=== PATIENT | female | born 1965 | race African-American/Black ===

== ENCOUNTER 2019-07-20 17:37 | Inpatient (IN) | payer OTHER ==
--- NOTE | 2019-07-20 17:55 | PDOC ---
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 The pt states she is to have a left knee reconstruction this coming Wednesday. She endorses frequent falls 2/2 her left knee instability. She denies any falls today/yesterday. Denies recent illness, fevers/chills, MCDONALD, vision changes, chest pain, trouble breathing, abdominal pain, N/V/C/D, dysuria, hematuria, or changes in strength/ sensation. PMH: Thalassemia PSH: L knee x4, s/p appy, gastric surgery (RYGB?) Meds: Iron SH: Denies x3 PCP: Dr. Acosta ([facility]) Surgeon: Dr. Keaton Rosenbaum 07/20/19 18:21 Past History - Past Medical History Allergies/Adverse Reactions: Allergies Allergy/AdvReac Type Severity Reaction Status Date / Time No Known Allergies Allergy Verified 07/20/19 17:50 Anemia: Yes COPD: No Other medical history: ARTHRITIS - Immunization History Immunization Up to Date: Yes - Psycho Social/Smoking Cessation Hx Smoking History: Never smoked Have you smoked in the past 12 months: No Information on smoking cessation initiated: No Hx Alcohol Use: No Drug/Substance Use Hx: No Review of Systems - Review of Systems Able to Perform ROS?: Yes Comments:: GENERAL/CONSTITUTIONAL: No fever or chills. No weakness HEAD, EYES, EARS, NOSE AND THROAT: No change in vision. No change in hearing. No sore throat CARDIOVASCULAR: No chest pain or shortness of breath RESPIRATORY: Denies cough, hemoptysis GASTROINTESTINAL: No nausea, vomiting, diarrhea or constipation GENITOURINARY: No dysuria, frequency, or change in urination MUSCULOSKELETAL: +L knee swelling w/o erythema/warmth SKIN: No rash NEUROLOGIC: No headache, vertigo, loss of consciousness, or change in strength/ sensation ENDOCRINE: No increased thirst. No abnormal weight change HEMATOLOGIC/LYMPHATIC: No anemia, easy bleeding, or history of blood clots ALLERGIC/IMMUNOLOGIC: No hives or skin allergy 07/20/19 17:54 Is the patient limited Malay proficient: No *Physical Exam - Vital Signs Last Vital Signs Temp Pulse Resp BP Pulse Ox 97.5 F L 59 L 18 154/60 100 07/20/19 17:46 07/20/19 17:46 07/20/19 17:46 07/20/19 17:46 07/20/19 17:46 - Physical Exam GENERAL: Awake, alert, and oriented to person/place/time, in no acute distress HEAD: No signs of trauma, normoc ephalic, atraumatic EYES: PERRLA, EOMI, sclera anicteric, conjunctiva clear ENT: Hearing grossly normal, nares patent, oropharynx clear without exudates. Moist mucosa LUNGS: No distress, speaks in full sentences, clear to auscultation bilaterally HEART: Regular rate and rhythm, normal S1 and S2, no murmurs appreciated, peripheral pulses normal and equal bilaterally ABDOMEN: Soft, nontender, normoactive bowel sounds. No guarding, no rebound EXTREMITIES: Left knee with well healed anterior incision, left knee with swelling w/o warmth or overlying erythema, left knee brace in place NEUROLOGICAL: Cranial nerves II through XII grossly intact. 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 Rosenbaum ED Course CMP, CBC, Coags, T/S ECG Plan for admission for planned surgery Pt w/o acute complaints Pt does not want anything for pain control at this time 07/20/19 18:28 Labs sent ECG pending Pt signed out to Dr. Pagan 07/20/19 18:53 Discharge - Discharge Information Problems reviewed: Yes Clinical Impression/Diagnosis: Swelling of left knee joint Thalassanemia Qualifiers: Thalassemia type: unspecified type Qualified Code(s): D56.9 - Thalassemia, unspecified Condition: Stable - Admission Yes - Follow up/Referral Referrals: Keaton Rosenbaum MD [Primary Care Provider] - - Patient Discharge Instructions - Post Discharge Activity
--- NOTE | 2019-07-20 18:32 | PDOC ---
Attending Attestation - Resident Resident Name: Jozef Moseley - ED Attending Attestation I have performed the following: I have examined & evaluated the patient, The case was reviewed & discussed with the resident, I agree w/resident's findings & plan - HPI HPI: 07/20/19 18:30 The pt is a 54F w/ a history of thalassemia anemia on iron supplementation, arthritis who presents for admission for planned knee surgery. The pt states she is to have a left knee reconstruction this coming Wednesday. She endorses frequent falls 2/2 her left knee instability. She denies any falls today/ yesterday. no f/c, weakness or paresthesias. PSH: L knee x4, s/p appy, gastric surgery (RYGB?) PCP: Dr. Acosta ([facility]) Surgeon: Dr. Keaton Rosenbaum - Physicial Exam PE: 07/20/19 18:30 Agree with the resident's HPI and PE as documented in the electronic medical record. NAD, well appearing, EOMI, PERRL, nl conjunctiva, anicteric; neck supple. lungs clear, RRR, abdomen soft nontender. no rebound, guarding. Back nontender. MERINO x4, no focal neuro deficits. No peripheral edema. normal color for ethnicity , WWP. +left knee vertical scar from prior surgeries. +tender to palp and swelling, no warmth or erythema, no discoloration. - Medical Decision Making 07/20/19 18:31 Vital Signs Temp Pulse Resp BP Pulse Ox 97.5 F L 59 L 18 154/60 100 07/20/19 17:46 07/20/19 17:46 07/20/19 17:46 07/20/19 17:46 07/20/19 17:46 VS reviewed wnl no e/o sepsis or septic arthritis basic labs/preop management being admitted for planned surgery with his orthopedic physician, Dr Rosenbaum who we spoke to with previsit note. pain controlled here, does not wish for analgesia now. admit to medical service for planned ortho reconstructive knee surgery. 07/23/19 09:43
[2019-07-20 18:57] LABS: BASO % 1.2 % (0-2.0); EOS % 10.3 % (0-4.5); HEMATOCRIT 33.4 % (32.4-45.2); HEMOGLOBIN 10.3 GM/dL (10.7-15.3); LYMPH % 43.4 % (8-40); MCH 22.5 pg (25.7-33.7); MCHC 30.8 g/dl (32.0-36.0); MEAN PLT VOLUME 9.4 fl (7.5-11.1); MONO % 11.6 % (3.8-10.2); NEUT % 33.5 % (42.8-82.8); PLATELET COUNT 270 K/MM3 (134-434); RBC 4.57 M/mm3 (3.60-5.2); RDW 15.7 % (11.6-15.6); WHITE BLOOD COUNT 4.7 K/mm3 (4.0-10.0)
[2019-07-20 19:16] LABS: INR 0.99 (0.83-1.09); PROTHROMBIN TIME (PATIENT) 11.7 SEC (9.7-13.0)
[2019-07-20 19:19] LABS: ACTIVATED PTT 31.5 SECONDS (25.2-36.5)
--- NOTE | 2019-07-20 19:26 | PDOC ---
*Physical Exam - Vital Signs Last Vital Signs Temp Pulse Resp BP Pulse Ox 97.5 F L 59 L 18 154/60 100 07/20/19 17:46 07/20/19 17:46 07/20/19 17:46 07/20/19 17:46 07/20/19 17:46 ED Treatment Course - LABORATORY CBC & Chemistry Diagram: 07/20/19 18:39 07/20/19 18:34 - ADDITIONAL ORDERS Additional order review: Laboratory Results 07/20/19 18:39 PT with INR 11.70 INR 0.99 PTT (Actin FS) 31.5 07/20/19 18:39 RBC 4.57 MCV 73.0 L MCHC 30.8 L RDW 15.7 H MPV 9.4 Neutrophils % 33.5 L Lymphocytes % 43.4 H Monocytes % 11.6 H Eosinophils % 10.3 H Basophils % 1.2 Medical Decision Making - Medical Decision Making Patient signed out to me from Dr. Moseley pending labs and admission to the hospital as she is to have a knee surgery by Dr. Rosenbaum the orthopedist EKG: NS rate of 60, narrow complexes, normal axis, no hypertrophy, no ST elevations or depressions, TWI in lead III, no Q waves, QTc 428, IN 174 Labs: Hb 10.3 Dispo: Med/Surg -Hospitalist is refusing to accept patient and stating this patient does not need to be admitted on a for a surgery this upcoming Wednesday - Will Call Dr. Rosenbaum and see what he wants - Dr. Rosenbaum says to admit patient to Dr. Sanchez - Dr. Sanchez admits patient's to Yung Kevin - Call placed to Dr. Kevin's office - awaiting callback - Dr. Kevin states he does not believe Dr. Sanchez still admits to this hospital and Dr. Kevin states he will happily accept this admission if Dr. Sanchez does not want it Dr. Sanchez: [phone] Dr. Kevin: [phone] - Call placed to Dr. Sanchez at 8 pm, no answer left voicemail - 2nd call placed to Dr. Sanchez at 8:30 pm, no answer, straight to voicemail - Will try again at 9 pm and if no response will call back Dr. Kevin for admission. - 3rd call placed to Dr. Sanchez - straight to voicemail - Will Call Dr. Kevin for admission - Patient accepted for admission by Dr. Kevin Discharge - Discharge Information Problems reviewed: Yes Clinical Impression/Diagnosis: Swelling of left knee joint Thalassanemia Qualifiers: Thalassemia type: unspecified type Qualified Code(s): D56.9 - Thalassemia, unspecified Condition: Stable - Admission Yes - Follow up/Referral Referrals: Keaton Rosenbaum MD [Primary Care Provider] - - Patient Discharge Instructions - Post Discharge Activity
[2019-07-20 19:42] LABS: ALBUMIN 3.6 g/dl (3.4-5.0); BILIRUBIN,TOTAL 0.4 mg/dL (0.2-1); CALCIUM 9.2 mg/dL (8.5-10.1); CREATININE 0.6 mg/dL (0.55-1.3); POTASSIUM 4.1 mmol/L (3.5-5.1); TOT PROT 7.2 g/dl (6.4-8.2)
[2019-07-20] MEDS ORDERED: ACETAMINOPHEN 1000 MG/100 ML VIAL (NON FORMULARY) IVPB ONE (20:09)
[2019-07-20] MEDS ORDERED: ACETAMINOPHEN INJECTION 100 ML IVPB ONE (21:26)
[2019-07-20 23:56] LABS: SICKLE CELL SCREEN NEGATIVE (NEGATIVE)
[2019-07-20 23:57] LABS: EOS % 7.9 % (0-4.5); HEMATOCRIT 31.5 % (32.4-45.2); HEMOGLOBIN 9.9 GM/dL (10.7-15.3); LYMPH % 52.5 % (8-40); MCH 22.6 pg (25.7-33.7); MCHC 31.3 g/dl (32.0-36.0); MEAN CELL VOLUME 72.1 fl (80-96); MEAN PLT VOLUME 8.8 fl (7.5-11.1); MONO % 9.1 % (3.8-10.2); NEUT % 29.5 % (42.8-82.8); PLATELET COUNT 269 K/MM3 (134-434); RBC 4.37 M/mm3 (3.60-5.2); RDW 15.8 % (11.6-15.6); WHITE BLOOD COUNT 4.6 K/mm3 (4.0-10.0)
[2019-07-21 00:28] VITALS: BMI 34.2
[2019-07-21] MEDS ORDERED: INSULIN (LEVEMIR) 100 UNITS/ML UNITS SQ ONE (08:39)
--- NOTE | 2019-07-21 09:06 | HP ---
Admitting History and Physical - Admission Chief Complaint: pt with h/o rt and lt tkr fell less wk ago and susiained lt knee injury went to [facility] hosp xrays done ? hardware ? shifting ocured as per pt. refered to dr bryan cutler admitted for sx wednesday asked to see pt preop. lt ? thgh slightly edematous lt knee pain scale 4 no other complaints History Source: Patient Limitations to Obtaining History: No Limitations - Past Medical History ...LMP Comment: LMP when patient in her 30's ...: No Heme/Onc: Yes: Other (thallasemia) Musculoskeletal: Yes: Other (lt knee pain swelling) - Past Surgical History Past Surgical History: Yes: Appendectomy, Joint Replacement - Smoking History Smoking history: Never smoked Have you smoked in the past 12 months: No - Alcohol/Substance Use Hx Alcohol Use: No - Social History Usual Living Arrangement: Yes: With Spouse ADL: Independent History of Recent Travel: No Home Medications - Allergies Allergies/Adverse Reactions: Allergies Allergy/AdvReac Type Severity Reaction Status Date / Time No Known Allergies Allergy Verified 07/20/19 17:50 - Home Medications Home Medications: Ambulatory Orders Ascorbic Acid [Vitamin C] 500 PO DAILY 07/21/19 Iron PO DAILY 07/21/19 Vitamin E 400 unit PO DAILY 07/21/19 Family Medical History Family History: Unremarkable Review of Systems - Review of Systems Constitutional: reports: No Symptoms Eyes: reports: No Symptoms HENT: reports: No Symptoms Neck: reports: No Symptoms Cardiovascular: reports: No Symptoms Respiratory: reports: No Symptoms Gastrointestinal: reports: No Symptoms Genitourinary: reports: No Symptoms Breasts: reports: No Symptoms Reported Musculoskeletal: reports: Joint Pain Integumentary: reports: No Symptoms Neurological: reports: No Symptoms Endocrine: reports: No Symptoms Hematology/Lymphatic: reports: No Symptoms Psychiatric: reports: No Symptoms Physical Examination Vital Signs: Vital Signs Temperature 98.1 F 07/21/19 06:19 Pulse Rate 63 07/21/19 06:19 Respiratory Rate 07/21/19 06:19 Blood Pressure 137/72 07/21/19 06:19 O2 Sat by Pulse Oximetry (%) 98 07/21/19 00:13 Constitutional: Yes: Well Nourished Eyes: Yes: WNL HENT: Yes: WNL Neck: Yes: WNL Cardiovascular: Yes: WNL, Other Respiratory: Yes: WNL Gastrointestinal: Yes: WNL ...Rectal Exam: Yes: Deferred Renal/: Yes: WNL Breast(s): Yes: WNL Extremities: Yes: Other (lt knee swelling pain scale 5) Edema: Yes Edema: LUE: 4+, LLE: 1+ (lt thigh ? swelling) Peripheral Pulses WNL: Yes Peripheral Pulses: Left Radial: 2+, Right Radial: 2+, Left Doralis Pedis: 2+, Right Dorsalis Pedis: 2+, Left Femoral: 2+ Integumentary: Yes: WNL Neurological: Yes: WNL ...Motor Strength: WNL Psychiatric: Yes: WNL Labs: CBC, BMP 07/20/19 22:44 07/20/19 18:34 Assessment/Plan pt had flu shot apr 2019 tlenol for pain pniemovax jenaro all preventive care done out pt allready pt cleared vfor sx reg diet npo wednesday after mn po
[2019-07-21] MEDS ORDERED: PNEUMOC 13-VAL CONJ-DIP CRM/PF 0.5 ML DISP.SYRIN IM ONE (09:11)
[2019-07-21] MEDS ORDERED: ACETAMINOPHEN 325 MG TABLET (FP) PO PRN (09:11)
--- NOTE | 2019-07-21 14:03 | EKG ---
Test Reason : Blood Pressure : / mmHG Vent. Rate : 060 BPM Atrial Rate : 060 BPM P-R Int : 174 ms QRS Dur : 086 ms QT Int : 428 ms P-R-T Axes : 040 019 020 degrees QTc Int : 428 ms NORMAL SINUS RHYTHM NORMAL ECG NO PREVIOUS ECGS AVAILABLE Confirmed by LISE PORTILLO MD ([id number]) on 07/21/2019 2:03:02 PM Referred By: Confirmed By:LISE PORTILLO MD
[2019-07-22 07:50] LABS: HEMATOCRIT 33.8 % (32.4-45.2); HEMOGLOBIN 10.5 GM/dL (10.7-15.3); MCH 22.7 pg (25.7-33.7); MCHC 31.1 g/dl (32.0-36.0); MEAN CELL VOLUME 72.9 fl (80-96); MEAN PLT VOLUME 8.8 fl (7.5-11.1); PLATELET COUNT 257 K/MM3 (134-434); RBC 4.64 M/mm3 (3.60-5.2); RDW 15.5 % (11.6-15.6); WHITE BLOOD COUNT 4.2 K/mm3 (4.0-10.0)
[2019-07-22] MEDS: POLYETHYLENE GLYCOL 3350 119 GM BTL PO SCH (10:59)
--- NOTE | 2019-07-22 11:26 | PN ---
Progress Note, Physician - Current Medication List Current Medications: Active Medications Acetaminophen (Tylenol -) 650 mg PO Q4H PRN PRN Reason: PAIN LEVEL 1-5 Last Admin: 07/21/19 14:48 Dose: 650 mg Pneumococcal 13-Valent Conj Vacc (Prevnar 13 Syringe -) 0.5 ml IM .ONCE ONE Stop: 07/21/19 09:12 Polyethylene Glycol (Miralax (For Daily Use) -) 17 gm PO DAILY OSCAR Last Admin: 07/22/19 10:59 Dose: 17 gm - Objective Vital Signs: Vital Signs Temperature 98.6 F 07/22/19 06:00 Pulse Rate 60 07/22/19 06:00 Respiratory Rate 20 07/22/19 06:00 Blood Pressure 124/63 07/22/19 06:00 O2 Sat by Pulse Oximetry (%) 98 07/21/19 21:00 Constitutional: Yes: Well Nourished Eyes: Yes: WNL HENT: Yes: WNL Neck: Yes: WNL Cardiovascular: Yes: WNL Respiratory: Yes: WNL Gastrointestinal: Yes: WNL ...Rectal Exam: Yes: Deferred Genitourinary: Yes: WNL Breast(s): Yes: WNL Musculoskeletal: Yes: Joint Swelling Extremities: Yes: WNL Edema: No Peripheral Pulses WNL: Yes Integumentary: Yes: WNL Neurological: Yes: WNL ...Motor Strength: WNL Psychiatric: Yes: WNL Labs: CBC, BMP 07/22/19 07:00 07/20/19 18:34 INR, PTT INR 0.99 (0.83-1.09) 07/20/19 18:39 Assessment/Plan constipation miralax po given echo today for large herat?? will cont to f/u
[2019-07-23] MEDS: POLYETHYLENE GLYCOL 3350 119 GM BTL PO SCH (11:50)
--- NOTE | 2019-07-23 13:45 | PN ---
Progress Note (short form) - Note Progress Note: Patient admitted through the ER for a periprosthetic fracture L Revision knee performed approx 5 years ago Jessenia Has been ambulating with pain. Sudden deterioration in ambulatory staus. ER Xray Subsidence with deficient femoral condyle due to osteolysis ans fracture with implant failure PLAN If not infected Revision to endoprosthetic replacement. If infected 2 stage revision arthroplasty. Pre op evaluation for op tomorrow.
[2019-07-23] MEDS ORDERED: MAGNESIUM HYDROX 2400MG/30ML ORAL SUSPENSION 30 ML CUP PO PRN (16:25)
[2019-07-23] MEDS ORDERED: MAG HYDROX/AL HYDROX/SIMETH 30 ML UNIT-DOSE CUP PO PRN (16:25)
[2019-07-23] MEDS ORDERED: ONDANSETRON 4 MG/2 ML VIAL IVPUSH PRN (16:25)
[2019-07-23] MEDS: SENNOSIDES/DOCUSATE COMBO (SENNA PLUS) TABLET (UD) PO SCH (21:28)
--- NOTE | 2019-07-24 10:00 | PN ---
Progress Note (short form) - Note Progress Note: 54F p/w impacted frank-prosthetic left distal femur fracture now unable to ambulate. Pt. was being treated as an outpatient for known osteolysis of left knee replacement prosthesis. This implant failure was stable, and the patient was able to ambulate with little restriction despite discomfort. She was being scheduled for elective revision left total knee replacement surgery. Pt. presented to my office , 07/20/2019 was significant, concerning deterioration in function. She has now been experiencing acutely worsening, constant left knee pain with frequent left knee instability/buckling, recurrent falls, and inability to walk from her bed to her bathroom (5-10 feet maximum). Due to this acute, rapid deterioration - in the setting of a now unstable frank- prosthetic, impacted distal femur fracture with implant osteolysis - the patient was admitted following my outpatient clinical consultation for full medical clearance in anticipation of revision left total knee replacement surgery today, 07/24/2019. This also allowed time to fly in specialized equipment for this complex procedure. Pain well controlled. No acute events overnight. Pt. denies overnight history of headaches, chest pain, shortness of breath, nausea, vomiting, chills, & sweats. (+) Voiding; (+) Flatus; (+) BM. NPO. NWB LLE. All labs and vitals reviewed. PE: AAO x 3, NAD. L-Knee: Old incision C/D/I. Diffuse swelling, TTP distal femur. Unable to assess range of motion due to severe knee pain (new). NVI distally. A/P: 54F now p/w UNSTABLE left frank-prosthetic distal femur fracture now also with INABILITY TO AMBULATE. -Plan for OR today. -Pain control. -DVT PPx: -Mechanical ONLY: MIYA's, SCD's. -No chemical DVT PPx. -Incentive spirometry q15 min. -PT/OT/Rehab, OOB. -NWB LLE. -NPO. -Care per medical hospitalist team. -Will follow. Keaton Rosenbaum MD (Orthopaedic Surgery).
--- NOTE | 2019-07-24 11:28 | PN ---
Progress Note (short form) - Note Progress Note: 54F p/w impacted frank-prosthetic left distal femur fracture with minimal ambulatory capacity. After long discussion with patient, who is emotionally distraught over her disposition, she reports that she can barely walk more than a few steps. 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 She avoids the use of all pain medication due to fear of developing a dependency /addiction. She has been averse to NSAID and/or opiate pain management for years. Pt. now unable to undergo revision left total knee replacement with distal femoral endoprosthetic replacement due to insurance-related financial constraints and case denial (DRG will not cover implant costs, which are not separately carved out). A/P: 54F now p/w UNSTABLE left frank-prosthetic distal femur fracture now also with INABILITY TO AMBULATE. -Pain control, if patient willing. -DVT PPx: -Chemical: ASA 81mg POD qD, or as otherwise directed by medical hospitalist team/PMD for diminished ambulatory capacity. -Mechanical ONLY: MIYA's, SCD's. -Incentive spirometry q15 min. -PT/OT/Rehab, OOB - will need PT evaluation to facilitate discharge planning. -NWB LLE. -Diet as tolerated. -Care per medical hospitalist team. -Will follow. Keaton Rosenbaum MD (Orthopaedic Surgery).
[2019-07-24] MEDS: POLYETHYLENE GLYCOL 3350 119 GM BTL PO SCH (12:01)
[2019-07-24] MEDS: PANTOPRAZOLE 40 MG TABLET PO SCH (12:02)
[2019-07-24] MEDS: SENNOSIDES/DOCUSATE COMBO (SENNA PLUS) TABLET (UD) PO SCH ×2 (12:02→22:02)
--- NOTE | 2019-07-24 16:01 | ECHO ---
Name: RAMEZ FENTON Exam:Adult Echocardiogram Study Date: 07/24/2019 03:02 PM Age: 54 yrs Height: 67 in Weight: 218 lb BSA: 2.1 m2 MMode/2D Measurements & Calculations IVSd: 1.3 cm Ao root diam: 3.0 cm LVIDd: 4.6 cm LA dimension: 4.0 cm LVIDs: 3.0 cm ACS: 2.1 cm LVPWd: 1.2 cm EDV(Teich): 96.6 ml LVOT diam: 2.0 cm ESV(Teich): 33.7 ml LAV (MOD-bp): 77.9 ml TAPSE: 2.5 cm RV S Loyd: 13.4 cm/sec Doppler Measurements & Calculations MV E max loyd: 61.6 cm/sec Ao V2 max: 127.6 cm/sec MV A max loyd: 73.7 cm/sec Ao max P.5 mmHg MV E/A: 0.84 Ao V2 mean: 86.5 cm/sec MV dec time: 0.22 sec Ao mean P.4 mmHg Ao V2 VTI: 26.5 cm MATTY(I,D): 3.1 cm2 MATTY(V,D): 2.9 cm2 LV V1 max P.3 mmHg SV(LVOT): 81.3 ml LV V1 mean P.3 mmHg LV V1 max: 115.0 cm/sec LV V1 mean: 68.2 cm/sec LV V1 VTI: 25.0 cm PA V2 max: 97.7 cm/sec Med Peak E' Loyd: 5.0 cm/sec PA max P.8 mmHg Med E/e': 12.3 PA acc time: 0.13 sec Lat Peak E' Loyd: 7.2 cm/sec Lat E/e': 8.6 PA pr(Accel): 20.4 mmHg Pulm Sys Loyd: 51.4 cm/sec Pulm Hernandez Loyd: 40.5 cm/sec Pulm S/D: 1.3 Left Ventricle The left ventricle is normal in size. Mild basal septal hypertrophy. Ejection Fraction = 60%. Left ve ntricular systolic function is normal. No regional wall motion abnormalities noted. Right Ventricle The right ventricle is normal size. The right ventricular systolic function is normal. Atria The left atrium is mildly dilated. Right atrial size is normal. Mitral Valve The mitral valve leaflets appear normal. There is no evidence of stenosis, fluttering, or prolapse. Tricuspid Valve The tricuspid valve is normal. There is trace tricuspid regurgitation. Aortic Valve The aortic valve is trileaflet. Pulmonic Valve The pulmonic valve is not well visualized. Great Vessels The aortic root is normal size. Pericardium/Pleura There is no pericardial effusion. Interpretation Summary LV: Alma size,mild basal septal hyperterophy,normal systolic function, EF 60%, relaxation abnormalit y RV: ormal No sigificant valvular dysfunction. Mild basal septal hypertrophy Jamie Stockton 07/24/2019 04:00 PM
[2019-07-25] MEDS ORDERED: ASPIRIN COATED 81 MG TABLET.EC PO SCH (10:00)
[2019-07-25] MEDS: SENNOSIDES/DOCUSATE COMBO (SENNA PLUS) TABLET (UD) PO SCH (10:03)
[2019-07-25] MEDS: PANTOPRAZOLE 40 MG TABLET PO SCH (10:03)
[2019-07-25] MEDS: POLYETHYLENE GLYCOL 3350 119 GM BTL PO SCH (10:03)
--- NOTE | 2019-07-25 11:09 | DS ---
Physical Examination Vital Signs: Vital Signs Temperature 98.3 F 07/25/19 05:35 Pulse Rate 62 07/25/19 05:35 Respiratory Rate 18 07/25/19 05:35 Blood Pressure 126/67 07/25/19 05:35 O2 Sat by Pulse Oximetry (%) 98 07/24/19 21:00 Constitutional: Yes: Well Nourished Eyes: Yes: WNL HENT: Yes: WNL Neck: Yes: WNL Cardiovascular: Yes: WNL Respiratory: Yes: WNL Gastrointestinal: Yes: WNL ...Rectal Exam: Yes: Deferred Renal/: Yes: WNL Breast(s): Yes: WNL Musculoskeletal: Yes: Other (lt knee no cjange) Extremities: Yes: Other (lt knee no/change) Edema: Yes Edema: LUE: 2+, LLE: 2+ Peripheral Pulses WNL: Yes Integumentary: Yes: WNL Neurological: Yes: WNL ...Motor Strength: WNL Psychiatric: Yes: WNL Labs: CBC, BMP 07/22/19 07:00 07/20/19 18:34 Discharge Summary Problems reviewed: Yes Reason For Visit: THALASSEMIA SWELLING OF LEFT KNEE JOINT Current Active Problems Swelling of left knee joint (Acute) Thalassanemia (Acute) Condition: Stable - Instructions Diet, Activity, Other Instructions: asa wednesday and wednesday only appt w me wednesday 1200 noon [facility]hab [facility] f/u docters will be set up with dr bryan bautista Referrals: Keaton Rosenbaum MD [Primary Care Provider] - - Home Medications Comprehensive Discharge Medication List: Ambulatory Orders Ascorbic Acid [Vitamin C] 500 PO DAILY 07/21/19 Iron PO DAILY 07/21/19 Vitamin E 400 unit PO DAILY 07/21/19
[2019-07-25 12:29] VITALS: BP 109/42; PULSE 78; TEMP 98.2
== END 2019-07-25 14:41 | disposition home health service (06) | DRG 561 ==
LOC: JER 17:37 → JERBED 19:58 → J6S 23:54
PROVIDERS: ADMIT Family Medicine; ATTEND Family Medicine
DX: M97.12XA Periprosthetic fracture around internal prosthetic left knee joint, initial encounter (principal); D56.9 Thalassemia, unspecified; K59.09 Other constipation; M25.462 Effusion, left knee; Z53.8 Procedure and treatment not carried out for other reasons
CPT/HCPCS: 36415; 71045-TC-FY; 73523-TC-FY; 73552-TC-LT-FY; 73560-TC-LT-FY; 73590-TC-LT-FY; 80053; 85025; 85027; 85610; 85660; 85730; 87902; 93005; 93010; 93306-TC; 97116-GP; 97162-GP; 99284-25; J0131